=== PATIENT | male | born 1975 | race Caucasian/White ===

== ENCOUNTER 2019-12-25 02:12 | Inpatient (IN) | payer MEDICAID ==
--- NOTE | 2019-12-25 06:28 | ER Document Report ---
ED Extremity Problem, Lower - General Chief Complaint: Swelling of Lower Extremity Stated Complaint: LEG PAIN/FEVER Time Seen by Provider: 12/25/19 06:04 Mode of Arrival: Ambulatory Information source: Patient, [facility] Records Notes: This 44-year-old male patient comes emergency room complaining of pain, swelling, redness, and warmth to his left lower extremity that started yesterday morning. Patient was seen here in May of last year and treated for a similar problem diagnosed as cellulitis in his left lower extremity. Following month he went to [facility] And had 2 stents placed in his left groin. It is unclear if this were in the venous system or the arterial system. 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 He has done well since the stenting procedure until now. TRAVEL OUTSIDE OF THE [place] 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 Lives with: Spouse/Significant other Family History: None Patient has suicidal ideation: No Patient has homicidal ideation: No - Past Medical History Cardiac Medical History: Reports: Other - May-Therner syndrome Pulmonary Medical History: Reports: None Past Surgical History: Reports: Hx Vascular Surgery - Angioplasty with 2 stents in left groin for May-Therner Syndrome - Immunizations Immunizations up to date: Yes Hx Diphtheria, Pertussis, Tetanus Vaccination: Yes Review of Systems - Review of Systems Constitutional: Fever EENT: No symptoms reported Cardiovascular: No symptoms reported, See HPI Respiratory: No symptoms reported Gastrointestinal: No symptoms reported Genitourinary: No symptoms reported Musculoskeletal: See HPI Skin: See HPI Hematologic/Lymphatic: No symptoms reported Neurological/Psychological: No symptoms reported Physical Exam - Vital signs Vitals: Temp Pulse Resp BP Pulse Ox 99.1 F 97 18 140/85 H 97 12/25/19 02:23 12/25/19 02:23 12/25/19 02:23 12/25/19 02:23 12/25/19 02:23 Interpretation: Normal - General General appearance: Appears well, Alert In distress: None - HEENT Head: Normocephalic, Atraumatic Eyes: Normal Pupils: PERRL - Respiratory Respiratory status: No respiratory distress Breath sounds: Normal - Cardiovascular Rhythm: Regular Heart sounds: Normal auscultation Murmur: No - Abdominal Inspection: Obese Distension: No distension Bowel sounds: Normal Tenderness: Nontender - Back Back: Normal - Extremities General upper extremity: Normal inspection General lower extremity: Other - LLE swelling, mild erythema and warmth to the leg from just below the knee to just above the ankle. Good DP pulse in left foot. - Neurological Neuro grossly intact: Yes - Psychological Associated symptoms: Normal affect, Normal mood - Skin Skin Temperature: Warm Skin Moisture: Dry Skin Color: Normal Course - Re-evaluation Re-evalutation: 12/25/19 10:01 1 the patient was admitted and April 2019, he had a leukocytosis with shift which decreased to a normal white count by discharge. He had a negative venous Doppler at that time. I talked with his doctors in [place], and they report he had a positive Doppler for DVT prior to the endovascular stenting that was done for his March Therner syndrome. Today his white blood cell count is elevated again with a shift, d-dimer is undetectable, venous Doppler is negative. This appears to be straightforward cellulitis in a patient who has chronic venous insufficiency in that extremity. - Vital Signs Vital signs: Temp Pulse Resp BP Pulse Ox 98.2 F 73 20 122/62 96 12/25/19 06:05 12/25/19 06:05 12/25/19 06:05 12/25/19 06:05 12/25/19 06:05 - Laboratory Result Diagrams: 12/25/19 06:35 12/25/19 06:35 Laboratory results interpreted by me: 12/25/19 12/25/19 12/25/19 06:35 06:35 06:35 WBC 12.8 H RDW 14.4 H Lymph % (Auto) 9.4 L Absolute Neuts (auto) 10.7 H Seg Neutrophils % 83.8 H ESR 26 H Total Bilirubin 2.1 H Creatine Kinase 274 H C-Reactive Protein 174.4 H Urine Protein 100 H Urine Blood LARGE H - Diagnostic Test Radiology reviewed: Reports reviewed - Venous Dopplers negative for DVT. - Consults Dr. Alvarado Time consulted: 10:00 Consulted provider: will come to ER Discharge - Discharge Clinical Impression: Cellulitis of left lower leg, Swelling of left lower extremity Condition: Stable Disposition: ADMITTED INPATIENT Admitting Provider: Jenny (Hospitalist) Unit Admitted: Medical Floor Scribe Attestation: 12/25/19 08:15 I personally performed the services described in the documentation, reviewed and edited the documentation which was dictated to the scribe in my presence, and it accurately records my words and actions.
[2019-12-25 06:49] LABS: ABSOLUTE EOSINOPHILS # (AUTO) 0.1 10^3/uL (0.0-0.6); ABSOLUTE LYMPHOCYTES (AUTO) 1.2 10^3/uL (0.5-4.7); ABSOLUTE MONOCYTES (AUTO) 0.7 10^3/uL (0.1-1.4); ABSOLUTE NEUT (AUTO) 10.7 10^3/uL (1.7-8.2); BASOPHILS % (AUTO) 0.4 % (0-2); EOSINOPHILS % (AUTO) 0.8 % (0-6); HEMATOCRIT 42.1 % (37.9-51.0); HEMOGLOBIN 14.1 g/dL (13.5-17.0); LYMPHOCYTES % (AUTO) 9.4 % (13-45); MEAN CORPUSCULAR HEMOGLOBIN 27.7 pg (27.0-33.4); MEAN CORPUSCULAR HGB CONC 33.5 g/dL (32.0-36.0); MEAN CORPUSCULAR VOLUME 83 fl (80-97); MONOCYTES % (AUTO) 5.6 % (3-13); PLATELET COUNT 198 10^3/uL (150-450); RED BLOOD COUNT 5.08 10^6/uL (4.35-5.55); RED CELL DISTRIBUTION WIDTH 14.4 % (11.5-14.0); SEGMENTED NEUTROPHILS % (AUTO) 83.8 % (42-78); TOTAL CELLS COUNTED % (AUTO) 100 %; WHITE BLOOD COUNT 12.8 10^3/uL (4.0-10.5)
[2019-12-25 07:09] LABS: ALBUMIN 3.8 g/dL (3.5-5.0); ALKALINE PHOSPHATASE 58 U/L (38-126); ANION GAP 9 (5-19); APPEARANCE,URINE CLEAR; ASPARTATE AMINO TRANSFERASE 22 U/L (17-59); BILIRUBIN,TOTAL 2.1 mg/dL (0.2-1.3); BILIRUBIN,URINE NEGATIVE (NEGATIVE); BLOOD UREA NITROGEN 13 mg/dL (7-20); CARBON DIOXIDE 25 mmol/L (22-30); CHLORIDE 104 mmol/L (98-107); COLOR,URINE YELLOW; CREATINE KINASE 274 U/L (55-170); GLUCOSE 98 mg/dL (75-110); GLUCOSE, URINE NEGATIVE (NEGATIVE); KETONES,URINE NEGATIVE (NEGATIVE); LEUKOCYTE ESTERASE,URINE NEGATIVE (NEGATIVE); NITRITE,URINE NEGATIVE (NEGATIVE); PROTEIN,URINE 100 mg/dL (NEGATIVE); TOTAL PROTEIN 6.8 g/dL (6.3-8.2); UROBILINOGEN,URINE NEGATIVE mg/dL (<2.0)
[2019-12-25 07:23] LABS: C-REACTIVE PROTEIN 174.4 mg/L (<10.0)
[2019-12-25] MEDS ORDERED: KETOROLAC TROMETHAMINE INJ/PF 30 MG/1 ML SDV IV ONE (07:27)
[2019-12-25 07:34] LABS: ERYTHROCYTE SEDIMENTATION RATE 26 mm/hr (0-15)
--- NOTE | 2019-12-25 09:17 | RADIOLOGY REPORT (SQ) ---
EXAM DESCRIPTION: VENOUS UNILATERAL LOWER COMPLETED DATE/TIME: 12/25/2019 9:02 am REASON FOR STUDY: May-Therner Syndrome, LLE swelling COMPARISON: Venous Doppler from 06/04/2019. TECHNIQUE: Dynamic and static matos scale and color images acquired of the left leg venous system. Se lected spectral images acquired with additional compression and augmentation maneuvers. The contralat eral common femoral vein and saphenofemoral junction were also imaged. Images stored on PACS. LIMITATIONS: None. FINDINGS: COMMON FEMORAL: Normal phasicity, compression and augmentation. No visualized echogenic ma terial on matos scale. No defects on color images. FEMORAL: Normal compression and augmentation. No visualized echogenic material on matos scale. No defe cts on color images. POPLITEAL: Normal compression, augmentation. No visualized echogenic material on matos scale. No defec ts on color images. CALF VESSELS: Normal compression, augmentation. No visualized echogenic material on matos scale. No de fects on color images. GSV: Normal compression, augmentation. No visualized echogenic material on matos scale. No defects on color images. ANY DEEP VENOUS INSUFFICIENCY: No. ANY EVIDENCE OF POPLITEAL CYST: No. OTHER: No other finding. CONTRALATERAL COMMON FEMORAL VEIN AND SAPHENOFEMORAL JUNCTION: Normal phasicity, compression and augmentation. No visualized echogenic material on matos scale. No de fects on color images. IMPRESSION: NO EVIDENCE OF DVT OR SVT IN THE LEFT LEG. TECHNICAL DOCUMENTATION: JOB ID: [id number] [employer]- All Rights Reserved Reading location - IP/workstation name: [email or web address]
[2019-12-25] MEDS ORDERED: MORPHINE SULFATE 10 MG/ML INJ IV ONE (10:00)
[2019-12-25] MEDS ORDERED: ONDANSETRON HCL INJ/PF 4 MG/2 ML SDV IV ONE (10:00)
[2019-12-25] MEDS ORDERED: ACETAMINOPHEN 325 MG TABLET PO PRN (11:10)
[2019-12-25] MEDS ORDERED: KETOROLAC TROMETHAMINE INJ/PF 30 MG/1 ML SDV IV PRN (11:11)
[2019-12-25] MEDS ORDERED: VANCOMYCIN HCL 0 MG in DEXTROSE 5%-WATER 250 ML IV NR (11:15)
[2019-12-25] MEDS ORDERED: INFLUENZA QUAD (6MOS+) 2019-20 VAC 0.5 ML SYR IM ONE (12:06)
[2019-12-25] MEDS: KETOROLAC TROMETHAMINE INJ/PF 30 MG/1 ML SDV IV PRN (12:22)
[2019-12-25] MEDS: HEPARIN SOD (PORCINE) 5,000 UNIT/ML 1 ML VIAL SUBCUT SCH ×2 (13:06→21:31)
--- NOTE | 2019-12-25 13:11 | PDOC H&P ---
History of Present Illness Admission Date/PCP: 12/25/19 10:25 INOCENCIA LEDBETTER MD Patient complains of: lef leg swelling History of Present Illness: ARI FELDMAN is a 44 year old male with a past medical history of recurrent left lower extremity cellulitis, May Thurner syndrome S/P iliac stent placement in July 14 who presented with recurrence of19 swelling and redness in the left leg. Patient reports that he has prior left lower extremity cellulitis. He has been apparently doing well until the past 2 to 3 days when he started developing left lower extremity swelling and erythema and tenderness in the left leg. He reported some chills but no fever. In the ER, DVT was ruled out but he was noted to have a left lower extremity cellulitis. Past Medical History Cardiac Medical History: Reports: Other - May-Therner syndrome Pulmonary Medical History: Reports: None Hematology: Denies: Anemia, Bleeding Tendencies Past Surgical History Past Surgical History: Reports: Vascular Surgery - Angioplasty with 2 stents in left groin for May-Therner Syndrome Social History Lives with: Spouse/Significant other Smoking Status: Never Smoker Electronic Cigarette use?: No Frequency of Alcohol Use: Occasional Hx Recreational Drug Use: No Drugs: None Hx Prescription Drug Abuse: No Family History Family History: None Parental Family History Reviewed: Yes - No premature CAD Children Family History Reviewed: No Sibling(s) Family History Reviewed.: No Medication/Allergy Home Medications: Aspirin [Aspirin 81 mg Chewable Tablet] 81 mg PO DAILY 12/25/19 Allergies/Adverse Reactions: No Known Allergies Allergy (Unverified 06/05/19 00:46) Review of Systems All systems: reviewed and no additional remarkable complaints except as stated - As mentioned in HPI Physical Exam Vital Signs: Temp Pulse Resp BP Pulse Ox 98.2 F 73 20 122/62 96 12/25/19 06:05 12/25/19 06:05 12/25/19 06:05 12/25/19 06:05 12/25/19 06:05 Intake & Output 12/24/19 12/25/19 12/26/19 06:59 06:59 06:59 Weight 280 lb General appearance: PRESENT: no acute distress, well-developed, well-nourished Head exam: PRESENT: atraumatic, normocephalic Eye exam: PRESENT: conjunctiva pink, EOMI, PERRLA. ABSENT: scleral icterus Ear exam: PRESENT: normal external ear exam Mouth exam: PRESENT: moist, tongue midline Neck exam: ABSENT: carotid bruit, JVD, lymphadenopathy, thyromegaly Respiratory exam: PRESENT: clear to auscultation sheng. ABSENT: rales, rhonchi, wheezes Cardiovascular exam: PRESENT: RRR. ABSENT: diastolic murmur, rubs, systolic murmur Pulses: PRESENT: normal dorsalis pedis pul GI/Abdominal exam: PRESENT: normal bowel sounds, soft. ABSENT: distended, guarding, mass, organolmegaly, rebound, tenderness Rectal exam: PRESENT: deferred Extremities exam: PRESENT: other - Erythema and swelling on the left lower extremity Neurological exam: PRESENT: alert, awake, oriented to person, oriented to place, oriented to time, oriented to situation, CN II-XII grossly intact. ABSENT: motor sensory deficit Results Laboratory Results: 12/25/19 06:35 12/25/19 06:35 12/25/19 12/25/19 12/25/19 06:35 06:35 06:35 WBC 12.8 H RBC 5.08 Hgb 14.1 Hct 42.1 MCV 83 MCH 27.7 MCHC 33.5 RDW 14.4 H Plt Count 198 Seg Neutrophils % 83.8 H Sodium 137.6 Potassium 4.0 Chloride 104 Carbon Dioxide 25 Anion Gap 9 BUN 13 Creatinine 0.74 Est GFR ( Amer) > 60 Glucose 98 Calcium 9.0 Total Bilirubin 2.1 H AST 22 Alkaline Phosphatase 58 C-Reactive Protein 174.4 H Total Protein 6.8 Albumin 3.8 Urine Color YELLOW Urine Appearance CLEAR Urine pH 5.0 Ur Specific Isabella 1.030 Urine Protein 100 H Urine Glucose (UA) NEGATIVE Urine Ketones NEGATIVE Urine Blood LARGE H Urine Nitrite NEGATIVE Ur Leukocyte Esterase NEGATIVE Urine WBC (Auto) 1 Urine RBC (Auto) 11 12/25/19 06:35 Creatine Kinase 274 H Impressions: Venous Doppler Study 12/25/19 06:19 IMPRESSION: NO EVIDENCE OF DVT OR SVT IN THE LEFT LEG. Assessment and Plan - Diagnosis (1) Cellulitis of left lower leg Is this a current diagnosis for this admission?: Yes Plan: VTE ruled out. Start patient on IV antibiotics. Demarcated lesions in the left lower extremity. (2) Obesity Qualifiers: Body mass index: BMI 40.0-44.9 Is this a current diagnosis for this admission?: Yes Plan: Counseled on lifestyle modifications and weight loss. - Time Time Spent with patient: 25-34 minutes
[2019-12-25] MEDS: MORPHINE SULFATE 10 MG/ML INJ IV PRN ×3 (13:37→22:49)
--- NOTE | 2019-12-25 14:53 | RADIOLOGY REPORT (SQ) ---
EXAM DESCRIPTION: CHEST SINGLE VIEW COMPLETED DATE/TIME: 12/25/2019 2:05 pm REASON FOR STUDY: cough COMPARISON: 06/04/2019 EXAM PARAMETERS: NUMBER OF VIEWS: One view. TECHNIQUE: Single frontal radiographic view of the chest acquired. RADIATION DOSE: NA LIMITATIONS: None. FINDINGS: LUNGS AND PLEURA: No opacities, masses or pneumothorax. No pleural effusion. MEDIASTINUM AND HILAR STRUCTURES: No masses. Contour normal. HEART AND VASCULAR STRUCTURES: Heart normal in size. Normal vasculature. BONES: No acute findings. HARDWARE: None in the chest. OTHER: No other significant finding. IMPRESSION: NO ACUTE RADIOGRAPHIC FINDING IN THE CHEST. TECHNICAL DOCUMENTATION: JOB ID: [id number] [employer]- All Rights Reserved Reading location - IP/workstation name: [email or web address]
[2019-12-25] MEDS: VANCOMYCIN HCL 1,250 MG in DEXTROSE 5%-WATER 250 ML IV SCH ×2 (16:05→21:32)
[2019-12-26] MEDS: MORPHINE SULFATE 10 MG/ML INJ IV PRN ×5 (02:54→22:36)
[2019-12-26] MEDS: HEPARIN SOD (PORCINE) 5,000 UNIT/ML 1 ML VIAL SUBCUT SCH ×3 (06:08→22:37)
[2019-12-26] MEDS: VANCOMYCIN HCL 1,250 MG in DEXTROSE 5%-WATER 250 ML IV SCH ×2 (06:09→14:26)
[2019-12-26] MEDS ORDERED: GUAIFENESIN/D-METHORPHAN (200-20 MG) SYRUP 10 ML PO PRN (10:37)
[2019-12-26] MEDS: CLINDAMYCIN 600 MG/D5W RTU 600 MG/50 ML RTUPB IV SCH ×2 (12:32→17:55)
[2019-12-26 14:14] LABS: VANCOMYCIN,TROUGH 8.7 ug/mL (5.0-20.0)
--- NOTE | 2019-12-26 15:04 | PDOC PROGRESS REPORT ---
Subjective Progress Note for:: 12/26/19 Subjective:: ARI FELDMAN is a 44 year old male with a past medical history of recurrent left lower extremity cellulitis, May Thurner syndrome S/P iliac stent placement in July 14 who presented with recurrence of19 swelling and redness in the left leg and was admitted for a left lower extremity cellulitis. No acute event overnight. Upon encounter this morning, erythema has slightly improved on the left leg. Patient does report left leg feels just slightly more tight today. He reports there is only minimal improvement with the pain. Will add IV clindamycin today. Reason For Visit: LEFT LEG CELLULITIS Physical Exam Vital Signs: Temp Pulse Resp BP Pulse Ox 97.8 F 84 20 133/89 H 98 12/26/19 13:36 12/26/19 13:36 12/26/19 13:36 12/26/19 08:51 12/26/19 13:36 Intake & Output 12/25/19 12/26/19 12/27/19 06:59 06:59 06:59 Intake Total 1334 300 Balance 1334 300 Weight 280 lb 283 lb 11.759 oz General appearance: PRESENT: no acute distress, well-developed, well-nourished Head exam: PRESENT: atraumatic, normocephalic Eye exam: PRESENT: conjunctiva pink, EOMI, PERRLA. ABSENT: scleral icterus Ear exam: PRESENT: normal external ear exam Mouth exam: PRESENT: moist, tongue midline Neck exam: ABSENT: carotid bruit, JVD, lymphadenopathy, thyromegaly Respiratory exam: PRESENT: clear to auscultation sheng. ABSENT: rales, rhonchi, wheezes Cardiovascular exam: PRESENT: RRR. ABSENT: diastolic murmur, rubs, systolic murmur Pulses: PRESENT: normal dorsalis pedis pul GI/Abdominal exam: PRESENT: normal bowel sounds, soft. ABSENT: distended, guarding, mass, organolmegaly, rebound, tenderness Rectal exam: PRESENT: deferred Musculoskeletal exam: PRESENT: other - +erythema and swelling on the left LE Neurological exam: PRESENT: alert, awake, oriented to person, oriented to place, oriented to time, oriented to situation, CN II-XII grossly intact. ABSENT: motor sensory deficit Results Laboratory Results: 12/25/19 06:35 12/26/19 13:29 12/26/19 13:29 Creatinine 0.65 Est GFR ( Amer) > 60 12/25/19 06:35 Creatine Kinase 274 H Impressions: Chest X-Ray 12/25/19 00:00 IMPRESSION: NO ACUTE RADIOGRAPHIC FINDING IN THE CHEST. Venous Doppler Study 12/25/19 06:19 IMPRESSION: NO EVIDENCE OF DVT OR SVT IN THE LEFT LEG. Assessment and Plan - Diagnosis (1) Cellulitis of left lower leg Is this a current diagnosis for this admission?: Yes Plan: Currently on IV ancomycin. Add IV clindamycin. (2) Obesity Qualifiers: Body mass index: BMI 40.0-44.9 Is this a current diagnosis for this admission?: Yes Plan: Counseled on lifestyle modifications and weight loss. - Time Time Spent with patient: 15-24 minutes
[2019-12-26] MEDS: FUROSEMIDE 20 MG TABLET PO SCH (17:56)
[2019-12-26] MEDS: VANCOMYCIN HCL 1,500 MG in DEXTROSE 5%-WATER 250 ML IV SCH (22:39)
[2019-12-27] MEDS: KETOROLAC TROMETHAMINE INJ/PF 30 MG/1 ML SDV IV PRN ×2 (01:03→22:01)
[2019-12-27] MEDS: CLINDAMYCIN 600 MG/D5W RTU 600 MG/50 ML RTUPB IV SCH ×3 (01:06→17:11)
[2019-12-27] MEDS: MORPHINE SULFATE 10 MG/ML INJ IV PRN ×4 (05:46→19:54)
[2019-12-27] MEDS: VANCOMYCIN HCL 1,500 MG in DEXTROSE 5%-WATER 250 ML IV SCH ×3 (05:47→21:54)
[2019-12-27] MEDS: HEPARIN SOD (PORCINE) 5,000 UNIT/ML 1 ML VIAL SUBCUT SCH ×3 (05:48→21:55)
[2019-12-27 06:17] LABS: ABSOLUTE BASOPHILS # (AUTO) 0.1 10^3/uL (0.0-0.2); ABSOLUTE EOSINOPHILS # (AUTO) 0.3 10^3/uL (0.0-0.6); ABSOLUTE LYMPHOCYTES (AUTO) 2.2 10^3/uL (0.5-4.7); ABSOLUTE MONOCYTES (AUTO) 0.8 10^3/uL (0.1-1.4); ABSOLUTE NEUT (AUTO) 4.8 10^3/uL (1.7-8.2); BASOPHILS % (AUTO) 0.9 % (0-2); EOSINOPHILS % (AUTO) 3.5 % (0-6); HEMATOCRIT 43.4 % (37.9-51.0); HEMOGLOBIN 14.5 g/dL (13.5-17.0); LYMPHOCYTES % (AUTO) 26.6 % (13-45); MEAN CORPUSCULAR HEMOGLOBIN 27.8 pg (27.0-33.4); MEAN CORPUSCULAR HGB CONC 33.4 g/dL (32.0-36.0); MEAN CORPUSCULAR VOLUME 83 fl (80-97); MONOCYTES % (AUTO) 9.3 % (3-13); PLATELET COUNT 218 10^3/uL (150-450); RED BLOOD COUNT 5.21 10^6/uL (4.35-5.55); RED CELL DISTRIBUTION WIDTH 14.2 % (11.5-14.0); SEGMENTED NEUTROPHILS % (AUTO) 59.7 % (42-78); TOTAL CELLS COUNTED % (AUTO) 100 %; WHITE BLOOD COUNT 8.1 10^3/uL (4.0-10.5)
[2019-12-27 06:34] LABS: ANION GAP 15 (5-19); BLOOD UREA NITROGEN 15 mg/dL (7-20); CALCIUM 9.2 mg/dL (8.4-10.2); CARBON DIOXIDE 19 mmol/L (22-30); CHLORIDE 104 mmol/L (98-107); GLUCOSE 87 mg/dL (75-110); POTASSIUM 4.4 mmol/L (3.6-5.0)
[2019-12-27] MEDS: FUROSEMIDE 20 MG TABLET PO SCH ×2 (10:14→17:11)
--- NOTE | 2019-12-27 15:30 | PDOC PROGRESS REPORT ---
Subjective Progress Note for:: 12/27/19 Subjective:: ARI FELDMAN is a 44 year old male with a past medical history of recurrent left lower extremity cellulitis, May Thurner syndrome S/P iliac stent placement in July 14 who presented with recurrence of19 swelling and redness in the left leg and was admitted for a left lower extremity cellulitis. 12/26: No acute event overnight. Upon encounter this morning, erythema has slightly improved on the left leg. Patient does report left leg feels just slightly more tight today. He reports there is only minimal improvement with the pain. Will add IV clindamycin today. 12/27: No acute event overnight. Patient says he only has minimal improvement with the pain and tenderness. Leg swelling appears to be the same from yesterday. Erythema also appears to be unchanged from yesterday but better from day of admission. Lesions have not gone beyond the demarcations. Reason For Visit: LEFT LEG CELLULITIS Physical Exam Vital Signs: Temp Pulse Resp BP Pulse Ox 97.8 F 77 18 115/74 97 12/27/19 00:01 12/27/19 00:01 12/27/19 00:01 12/27/19 00:01 12/27/19 00:01 Intake & Output 12/26/19 12/27/19 12/28/19 06:59 06:59 06:59 Intake Total 1334 2103 300 Balance 1334 2103 300 Weight 283 lb 11.759 oz 283 lb 4.704 oz General appearance: PRESENT: no acute distress, well-developed, well-nourished Head exam: PRESENT: atraumatic, normocephalic Eye exam: PRESENT: conjunctiva pink, EOMI, PERRLA. ABSENT: scleral icterus Ear exam: PRESENT: normal external ear exam Mouth exam: PRESENT: moist, tongue midline Neck exam: ABSENT: carotid bruit, JVD, lymphadenopathy, thyromegaly Respiratory exam: PRESENT: clear to auscultation sheng. ABSENT: rales, rhonchi, wheezes Cardiovascular exam: PRESENT: RRR. ABSENT: diastolic murmur, rubs, systolic mu rmur Pulses: PRESENT: normal dorsalis pedis pul GI/Abdominal exam: PRESENT: normal bowel sounds, soft. ABSENT: distended, guarding, mass, organolmegaly, rebound, tenderness Rectal exam: PRESENT: deferred Extremities exam: PRESENT: pedal edema, tenderness Neurological exam: PRESENT: alert, awake, oriented to person, oriented to place, oriented to time, oriented to situation, CN II-XII grossly intact. ABSENT: motor sensory deficit Results Laboratory Results: 12/27/19 05:43 12/27/19 05:43 12/27/19 12/27/19 05:43 05:43 WBC 8.1 RBC 5.21 Hgb 14.5 Hct 43.4 MCV 83 MCH 27.8 MCHC 33.4 RDW 14.2 H Plt Count 218 Seg Neutrophils % 59.7 Sodium 138.3 Potassium 4.4 Chloride 104 Carbon Dioxide 19 L Anion Gap 15 BUN 15 Creatinine 0.76 Est GFR ( Amer) > 60 Glucose 87 Calcium 9.2 12/25/19 06:35 Creatine Kinase 274 H Impressions: Chest X-Ray 12/25/19 00:00 IMPRESSION: NO ACUTE RADIOGRAPHIC FINDING IN THE CHEST. Venous Doppler Study 12/25/19 06:19 IMPRESSION: NO EVIDENCE OF DVT OR SVT IN THE LEFT LEG. Assessment and Plan - Diagnosis (1) Cellulitis of left lower leg Is this a current diagnosis for this admission?: Yes Plan: 2/2: Continue IV antibiotics. Will check leg circumference daily. (2) Obesity Qualifiers: Body mass index: BMI 40.0-44.9 Is this a current diagnosis for this admission?: Yes Plan: Counseled on lifestyle modifications and weight loss. - Time Time Spent with patient: 25-34 minutes
[2019-12-28] MEDS: CLINDAMYCIN 600 MG/D5W RTU 600 MG/50 ML RTUPB IV SCH ×2 (01:14→10:24)
[2019-12-28] MEDS: MORPHINE SULFATE 10 MG/ML INJ IV PRN ×3 (01:14→10:24)
[2019-12-28] MEDS: HEPARIN SOD (PORCINE) 5,000 UNIT/ML 1 ML VIAL SUBCUT SCH ×3 (05:43→22:30)
[2019-12-28] MEDS: VANCOMYCIN HCL 1,500 MG in DEXTROSE 5%-WATER 250 ML IV SCH ×3 (05:44→22:30)
[2019-12-28 06:42] LABS: VANCOMYCIN,TROUGH 18.5 ug/mL (5.0-20.0)
[2019-12-28 10:21] LABS: ANION GAP 9 (5-19); BLOOD UREA NITROGEN 17 mg/dL (7-20); CALCIUM 8.8 mg/dL (8.4-10.2); CARBON DIOXIDE 23 mmol/L (22-30); CHLORIDE 105 mmol/L (98-107); GLUCOSE 88 mg/dL (75-110); POTASSIUM 4.2 mmol/L (3.6-5.0)
[2019-12-28] MEDS: FUROSEMIDE 20 MG TABLET PO SCH (10:24)
--- NOTE | 2019-12-28 14:42 | PDOC PROGRESS REPORT ---
Subjective Progress Note for:: 12/28/19 Subjective:: ARI FELDMAN is a 44 year old male with a past medical history of recurrent left lower extremity cellulitis, May Thurner syndrome S/P iliac stent placement in July 14 who presented with recurrence of19 swelling and redness in the left leg and was admitted for a left lower extremity cellulitis. 12/26: No acute event overnight. Upon encounter this morning, erythema has slightly improved on the left leg. Patient does report left leg feels just slightly more tight today. He reports there is only minimal improvement with the pain. Will add IV clindamycin today. 12/27: No acute event overnight. Patient says he only has minimal improvement with the pain and tenderness. Leg swelling appears to be the same from yesterday. Erythema also appears to be unchanged from yesterday but better from day of admission. Lesions have not gone beyond the demarcations. 12/28: No acute event overnight. Upon encounter this morning, patient appears comfortable. He does report of improvement on the pain and tenderness in the left lower extremity. There is now discernible clinical improvement. Left lower extremity appears slightly less swollen and less erythematous from yesterday. Continue IV antibiotics for the next 24 to 48 hours before switching to p.o. Reason For Visit: LEFT LEG CELLULITIS Physical Exam Vital Signs: Temp Pulse Resp BP Pulse Ox 97.6 F 73 16 131/76 H 98 12/28/19 12:00 12/28/19 12:00 12/28/19 12:00 12/28/19 12:00 12/28/19 12:00 Intake & Output 12/27/19 12/28/19 12/29/19 06:59 06:59 06:59 Intake Total 2103 900 850 Balance 2103 900 850 Weight 283 lb 4.704 oz 284 lb 13.396 oz General appearance: PRESENT: no acute distress, well-developed, well-nourished Head exam: PRESENT: atraumatic, normocephalic Eye exam: PRESENT: conjunctiva pink, EOMI, PERRLA. ABSENT: scleral icterus Ear exam: PRESENT: normal external ear exam Mouth exam: PRESENT: moist, tongue midline Neck exam: ABSENT: carotid bruit, JVD, lymphadenopathy, thyromegaly Respiratory exam: PRESENT: clear to auscultation sheng. ABSENT: rales, rhonchi, wheezes Cardiovascular exam: PRESENT: RRR. ABSENT: diastolic murmur, rubs, systolic murmur Pulses: PRESENT: normal dorsalis pedis pul GI/Abdominal exam: PRESENT: normal bowel sounds, soft. ABSENT: distended, guarding, mass, organolmegaly, rebound, tenderness Rectal exam: PRESENT: deferred Extremities exam: PRESENT: other - Left lower extremity appears slightly less swollen and less erythematous from yesterday. Neurological exam: PRESENT: alert, awake, oriented to person, oriented to place, oriented to time, oriented to situation, CN II-XII grossly intact. ABSENT: motor sensory deficit Results Laboratory Results: 12/27/19 05:43 12/28/19 05:41 12/28/19 12/28/19 05:41 05:41 Sodium 137.1 Potassium 4.2 Chloride 105 Carbon Dioxide 23 Anion Gap 9 BUN 17 Creatinine 1.10 1.10 Est GFR ( Amer) > 60 > 60 Glucose 88 Calcium 8.8 12/25/19 06:35 Creatine Kinase 274 H Impressions: Chest X-Ray 12/25/19 00:00 IMPRESSION: NO ACUTE RADIOGRAPHIC FINDING IN THE CHEST. Venous Doppler Study 12/25/19 06:19 IMPRESSION: NO EVIDENCE OF DVT OR SVT IN THE LEFT LEG. Assessment and Plan - Diagnosis (1) Cellulitis of left lower leg Is this a current diagnosis for this admission?: Yes Plan: 2/2: Continue IV antibiotics. Will check leg circumference daily. 2/3: Improving. Continue IV antibiotics for the next 24 to 48 hours before switching to p.o. (2) Obesity Qualifiers: Body mass index: BMI 40.0-44.9 Is this a current diagnosis for this admission?: Yes Plan: Counseled on lifestyle modifications and weight loss. - Time Time Spent with patient: 15-24 minutes
[2019-12-28] MEDS: HYDROCODONE/ACETAMINOPHEN 5-325 MG TABLET PO PRN ×2 (15:06→22:31)
[2019-12-28] MEDS: KETOROLAC TROMETHAMINE INJ/PF 30 MG/1 ML SDV IV PRN (20:38)
[2019-12-28] MEDS: CLINDAMYCIN HCL 150 MG CAPSULE PO SCH (22:32)
[2019-12-29] MEDS: HYDROCODONE/ACETAMINOPHEN 5-325 MG TABLET PO PRN ×2 (04:41→11:46)
[2019-12-29] MEDS: CLINDAMYCIN HCL 150 MG CAPSULE PO SCH ×2 (05:58→14:47)
[2019-12-29] MEDS: VANCOMYCIN HCL 1,500 MG in DEXTROSE 5%-WATER 250 ML IV SCH ×2 (05:58→14:50)
[2019-12-29] MEDS: HEPARIN SOD (PORCINE) 5,000 UNIT/ML 1 ML VIAL SUBCUT SCH ×2 (05:59→14:48)
[2019-12-29] MEDS: KETOROLAC TROMETHAMINE INJ/PF 30 MG/1 ML SDV IV PRN (10:07)
--- NOTE | 2019-12-29 13:51 | PDOC DISCHARGE SUMMARY ---
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 He had a similar episode in May 2019. IV antibiotics were initiated with good response. - Additional Information Resuscitation Status: Full Code Discharge Diet: Cardiac Discharge Activity: Activity As Tolerated Referrals: THERESE GOODEN DPM [ACTIVE STAFF] - (Please set up appointment with Dr. Gooden at patient's request. Patient will need a referral from primary care provider to be sent prior to appt. being scheduled.) BYRON CHERY FNP [NO LOCAL MD] - 01/05/20 3:00 pm (SCHEDULED APPT. IS AT THE [place] LOCATION WITH BYRON CHERY.) Prescriptions: Clindamycin HCl [Cleocin 150 mg Capsule] 300 mg PO Q8 10 Days #30 capsule Hydrocodone/Acetaminophen [[place] 5-325 mg Tablet] 1 tab PO Q6HP PRN 4 Days #8 tablet PRN Reason: Home Medications: Aspirin [Aspirin 81 mg Chewable Tablet] 81 mg PO DAILY 12/25/19 Clindamycin HCl [Cleocin 150 mg Capsule] 300 mg PO Q8 10 Days #30 capsule 12/29/19 Fluticasone Propionate [Flonase Nasal [place] 50 Mcg/[place] 16 gm] 2 spray NASL DAILY spray.pump 12/29/19 Hydrocodone/Acetaminophen [[place] 5-325 mg Tablet] 1 tab PO Q6HP PRN 4 Days #8 tablet 12/29/19 History of Present Illiness History of Present Illness: ARI FELDMAN is a 44 year old male with a past medical history of recurrent left lower extremity cellulitis, May Thurner syndrome S/P iliac stent placement in July 14 who presented with recurrence of19 swelling and redness in the left leg. Patient reports that he has prior left lower extremity cellulitis. He has been apparently doing well until the past 2 to 3 days when he started developing left lower extremity swelling and erythema and tenderness in the left leg. He reported some chills but no fever. In the ER, DVT was ruled out but he was noted to have a left lower extremity cellulitis. Hospital Course Hospital Course: Unremarkable hospital course. With vancomycin and clindamycin the erythema and discomfort improved. His white blood cell count normalized. The erythema receded from the demarcation lines drawn on his leg. He states this is similar to a previous episode from last year. we had a long discussion about different types of compression and the benefits that might provide for this patient. Physical Exam Vital Signs: Temp Pulse Resp BP Pulse Ox 98.0 F 82 20 151/76 H 95 12/29/19 11:19 12/29/19 11:19 12/29/19 11:19 12/29/19 11:19 12/29/19 11:19 Intake & Output 12/28/19 12/29/19 12/30/19 06:59 06:59 06:59 Intake Total 900 1995 250 Balance 900 1995 250 Weight 129.2 kg 130.2 kg General appearance: PRESENT: no acute distress, morbidly obese Respiratory exam: PRESENT: clear to auscultation sheng, symmetrical, unlabored. ABSENT: tachypnea, wheezes Cardiovascular exam: PRESENT: RRR, +S1, +S2 GI/Abdominal exam: PRESENT: normal bowel sounds, soft. ABSENT: tenderness Extremities exam: PRESENT: +2 edema, other - Left lower leg is still larger than the right. Erythema is receding. There is still tenderness. Musculoskeletal exam: PRESENT: tenderness Neurological exam: PRESENT: alert, awake, oriented to person, oriented to place, oriented to time, oriented to situation, CN II-XII grossly intact Results Laboratory Results: WBC 8.1 10^3/uL (4.0-10.5) 12/27/19 05:43 RBC 5.21 10^6/uL (4.35-5.55) 12/27/19 05:43 Hgb 14.5 g/dL (13.5-17.0) 12/27/19 05:43 Hct 43.4 % (37.9-51.0) 12/27/19 05:43 MCV 83 fl (80-97) 12/27/19 05:43 MCH 27.8 pg (27.0-33.4) 12/27/19 05:43 MCHC 33.4 g/dL (32.0-36.0) 12/27/19 05:43 RDW 14.2 % (11.5-14.0) H 12/27/19 05:43 Plt Count 218 10^3/uL (150-450) 12/27/19 05:43 Lymph % (Auto) 26.6 % (13-45) 12/27/19 05:43 [place] % (Auto) 9.3 % (3-13) 12/27/19 05:43 Eos % (Auto) 3.5 % (0-6) 12/27/19 05:43 Baso % (Auto) 0.9 % (0-2) 12/27/19 05:43 Absolute Neuts (auto) 4.8 10^3/uL (1.7-8.2) 12/27/19 05:43 Absolute Lymphs (auto) 2.2 10^3/uL (0.5-4.7) 12/27/19 05:43 Absolute Monos (auto) 0.8 10^3/uL (0.1-1.4) 12/27/19 05:43 Absolute Eos (auto) 0.3 10^3/uL (0.0-0.6) 12/27/19 05:43 Absolute Basos (auto) 0.1 10^3/uL (0.0-0.2) 12/27/19 05:43 Seg Neutrophils % 59.7 % (42-78) 12/27/19 05:43 ESR 26 mm/hr (0-15) H 12/25/19 06:35 D-Dimer < 0.27 ug/mL (0.00-0.50) 12/25/19 06:35 Sodium 137.1 mmol/L (137-145) 12/28/19 05:41 Potassium 4.2 mmol/L (3.6-5.0) 12/28/19 05:41 Chloride 105 mmol/L (98-107) 12/28/19 05:41 Carbon Dioxide 23 mmol/L (22-30) 12/28/19 05:41 Anion Gap 9 (5-19) 12/28/19 05:41 BUN 17 mg/dL (7-20) 12/28/19 05:41 Creatinine 1.10 mg/dL (0.52-1.25) 12/28/19 05:41 Creatinine 1.10 mg/dL (0.52-1.25) 12/28/19 05:41 Est GFR ( Amer) > 60 (>60) 12/28/19 05:41 Est GFR ( Amer) > 60 (>60) 12/28/19 05:41 Est GFR (MDRD) Non-Af > 60 (>60) 12/28/19 05:41 Est GFR (MDRD) Non-Af > 60 (>60) 12/28/19 05:41 Glucose 88 mg/dL (75-110) 12/28/19 05:41 Calcium 8.8 mg/dL (8.4-10.2) 12/28/19 05:41 Total Bilirubin 2.1 mg/dL (0.2-1.3) H 12/25/19 06:35 Direct Bilirubin 0.0 mg/dL (0.0-0.4) 12/25/19 06:35 Neonat Total Bilirubin Not Reportable 12/25/19 06:35 Neonat Direct Bilirubin Not Reportable 12/25/19 06:35 Neonat Indirect Bili Not Reportable 12/25/19 06:35 AST 22 U/L (17-59) 12/25/19 06:35 ALT 25 U/L (<50) 12/25/19 06:35 Alkaline Phosphatase 58 U/L (38-126) 12/25/19 06:35 Creatine Kinase 274 U/L (55-170) H 12/25/19 06:35 C-Reactive Protein 174.4 mg/L (<10.0) H 12/25/19 06:35 Total Protein 6.8 g/dL (6.3-8.2) 12/25/19 06:35 Albumin 3.8 g/dL (3.5-5.0) 12/25/19 06:35 Urine Color YELLOW 12/25/19 06:35 Urine Appearance CLEAR 12/25/19 06:35 Urine pH 5.0 (5.0-9.0) 12/25/19 06:35 Ur Specific [place] 1.030 12/25/19 06:35 Urine Protein 100 mg/dL (NEGATIVE) H 12/25/19 06:35 Urine Glucose (UA) NEGATIVE mg/dL (NEGATIVE) 12/25/19 06:35 Urine Ketones NEGATIVE mg/dL (NEGATIVE) 12/25/19 06:35 Urine Blood LARGE (NEGATIVE) H 12/25/19 06:35 Urine Nitrite NEGATIVE (NEGATIVE) 12/25/19 06:35 Urine Bilirubin NEGATIVE (NEGATIVE) 12/25/19 06:35 Urine Urobilinogen NEGATIVE mg/dL (<2.0) 12/25/19 06:35 Ur Leukocyte Esterase NEGATIVE (NEGATIVE) 12/25/19 06:35 Urine WBC (Auto) 1 /HPF 12/25/19 06:35 Urine RBC (Auto) 11 /HPF 12/25/19 06:35 Urine Mucus (Auto) MOD /LPF 12/25/19 06:35 Urine Ascorbic Acid NEGATIVE (NEGATIVE) 12/25/19 06:35 Time Trough Drawn 0541 12/28/19 05:41 Vancomycin Trough 18.5 ug/mL (5.0-20.0) 12/28/19 05:41 Impressions: Chest X-Ray 12/25/19 00:00 IMPRESSION: NO ACUTE RADIOGRAPHIC FINDING IN THE CHEST. Venous Doppler Study 12/25/19 06:19 IMPRESSION: NO EVIDENCE OF DVT OR SVT IN THE LEFT LEG. Plan Health Concerns: With his morbid obesity (BMI 42) he is at risk for ongoing venous insufficiency which is a significant issue considering his diagnosis of May Mcgee syndrome. He would benefit from aggressive lymphedema management and weight loss. It appears that his bilirubin is chronically elevated. It was 2.9 during his last hospital admission. Further evaluation and treatment plan per his primary care provider. Plan of Treatment: Complete antibiotic therapy as ordered. Follow-up with podiatry and I recommend lymphedema management program. Goals: Resolution of cellulitis Time Spent: Greater than 30 Minutes Stroke Is this a Stroke Patient?: No Acute Heart Failure - Is this a Heart Failure Patient?: No
[2019-12-29] MEDS ORDERED: FLUTICASONE NASAL SPRAY 50 MCG/SPRY 120 SPRAY/16 GM NASL SCH (14:00)
[2019-12-29 15:08] VITALS: BP 141/86
== END 2019-12-29 15:38 | disposition home or self-care (01) | DRG 603 ==
LOC: ER 02:12 → EH 10:25 → INTOOBSV 10:25 → OBSVTOIN 11:09 → 5 11:50
PROVIDERS: ADMIT Internal Medicine; ATTEND Internal Medicine
DX: L03.116 Cellulitis of left lower limb (principal); Z68.41 Body mass index [BMI] 40.0-44.9, adult; E66.9 Obesity, unspecified; Z95.828 Presence of other vascular implants and grafts; Z23 Encounter for immunization
CPT/HCPCS: 36415; 71045; 80048; 80053; 80202; 81001; 82550; 82565; 85025; 85379; 85652; 86140; 87040; 90686; 93971; 96374; 96375; 99285; J1644; J1885; J2270; J2405; J3370; J3490; J7060